=== PATIENT | male | born 1955 | race Caucasian/White ===

== ENCOUNTER → 2020-09-20 12:47 | Outpatient (BNVA) | payer MEDICARE, OTHER, SELFPAY | PROVIDERS: Family Provider Internal Medicine; PCP Internal Medicine; Visit Provider Urology | DX: N40.1 Benign prostatic hyperplasia with lower urinary tract symptoms (principal); Z12.5 Encounter for screening for malignant neoplasm of prostate | CPT/HCPCS: 81003; G0103 ==

== ENCOUNTER → 2021-05-08 13:17 | Outpatient (BNVA) | payer MEDICARE, SELFPAY | PROVIDERS: Family Provider Internal Medicine; PCP Internal Medicine; Visit Provider Nurse Practitioner Family | DX: Z20.822 Contact with and (suspected) exposure to COVID-19 (principal); J06.9 Acute upper respiratory infection, unspecified | CPT/HCPCS: 87635 ==

== ENCOUNTER 2021-05-14 08:50 | Outpatient (CLI) | payer MEDICARE, SELFPAY ==
[2021-05-14 11:08] VITALS: BP 123/77; PULSE 84; RESP 18; TEMP 37.5; O2SAT 96; BMI 29.3
[2021-05-14 11:57] VITALS: BP 140/76; PULSE 72; RESP 18; TEMP 36.6; O2SAT 97
--- NOTE | 2021-05-14 11:57 | PC.NURSE ---
DC, Ambulatory to POV with zero difficulty
[2021-05-14 12:13] VITALS: BP 140/76; PULSE 72; RESP 18; TEMP 36.6; O2SAT 97
== END 2021-05-14 08:51 | disposition home or self-care (01) ==
PROVIDERS: PCP Internal Medicine; Visit Provider Nurse Practitioner Family
DX: U07.1 COVID-19 (principal)
CPT/HCPCS: 96365

== ENCOUNTER 2022-09-04 21:03 | Emergency (ER) | payer MEDICARE, SELFPAY ==
--- NOTE | 2022-09-04 21:10 | CTR_ITS ---
PROCEDURE INFORMATION: Exam: CT Head Without Contrast Exam date and time: 09/04/2022 9:23 PM Age: 67 years old Clinical indication: Syncope and collapse; Patient HX: Witnessed syncope. C/O severe dizziness and nausea. History of vertigo. TECHNIQUE: Imaging protocol: Computed tomography of the head without contrast. Radiation optimization: All CT scans at this facility use at least one of these dose optimization techniques: automated exposure control; mA and/or kV adjustment per patient size (includes targeted exams where dose is matched to clinical indication); or iterative reconstruction. COMPARISON: No relevant prior studies available. RADIATION DOSE METRICS: Total DLP (mGy-cm): 1031.98 FINDINGS: Brain: Normal. No hemorrhage. Unremarkable white matter. No mass effect. Cerebral ventricles: No ventriculomegaly. Paranasal sinuses: Visualized sinuses are unremarkable. No fluid levels. Mastoid air cells: Visualized mastoid air cells are well aerated. Bones/joints: Unremarkable. No acute fracture. Soft tissues: Unremarkable. CT/CT head wo con* [id number] IMPRESSION: No acute intracranial abnormality.
--- NOTE | 2022-09-04 21:10 | XRR_ITS ---
PROCEDURE INFORMATION: Exam: XR Chest Exam date and time: 09/04/2022 10:14 PM Age: 67 years old Clinical indication: Other: Syncope TECHNIQUE: Imaging protocol: Radiologic exam of the chest. Views: 1 view. COMPARISON: MR shoulder LT wo con* [id number] 02/04/2019 8:23 AM FINDINGS: Lungs: Unremarkable. No consolidation. Small right upper lobe calcified granuloma. Pleural spaces: Unremarkable. No pleural effusion. No pneumothorax. Heart/Mediastinum: Unremarkable. No cardiomegaly. Bones/joints: Unremarkable. XR/XR chest 1V portable [id number] IMPRESSION: No acute findings.
--- NOTE | 2022-09-04 21:10 | ECG_ITS ---
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 Measurements Intervals [place] Rate: 85 P: 72 ND: 186 QRS: 77 QRSD: 86 T: 71 QT: 349 QTc: 415 Interpretive Statements SINUS RHYTHM NONSPECIFIC T-WAVE ABNORMALITY No previous ECG available for comparison Electronically Signed On 09-06-2022 12:29:46 FURNACE INSTALLER by Isaias Sheth M.D. [email or web address]
[2022-09-04 21:15] VITALS: BP 131/74; PULSE 83; RESP 18; TEMP 37.1; O2SAT 96; BMI 29.9
--- NOTE | 2022-09-04 21:16 | ED_ITS ---
HPI - Syncope General: Chief Complaint: Syncope Stated Complaint: syncope, nausea, vomiting, dizziness Time Seen by Provider: 09/04/22 21:04 Source: patient and EMS Mode of arrival: EMS Limitations: no limitations History of Present Illness: 67-year-old male states that he was at [facility] he states that he started feeling diaphoretic and states he felt like he is going to pass out and then did have a syncopal event. He states happened roughly an hour ago he states that he vomited once he woke up and he is felt much improved he states he does have some slight vertigo that has been chronic in nature for years denies hitting his head denies any chest pain denies any shortness of breath. Associated symptoms: Deny abdominal pain, fever(s) or nausea Review of Systems Const: Denies: fever(s), chills, body aches or change in appetite Eyes: Denies: blurry vision or eye discomfort ENMT: Denies: throat pain or dental pain Card: Reports: syncope Resp: Denies: dyspnea GI: Denies: abdominal pain, nausea, vomiting or diarrhea : Denies: dysuria Musc: Denies: neck pain or back pain Skin/Breast: Denies: rash Neuro: Reports: dizziness Psych: Denies: depression Fredi/Lymph: Denies: easy bruising All/Imm: Denies: urticaria PFSH ED PFSH: Medical History Bladder pain BPH loc w urin obs/LUTS Chronic prostatitis History of open sigmoidectomy RESECTION OF SIGMOID FOR CHRONIC AND ACUTE DIVERTICULITIS Hypoglycemia Lumbar disc disease with radiculopathy Nocturia Surgical History Hx of arthroscopy of left knee S/P colon resection Family History Father , AT AGE 69 Stroke Mother , AT AGE 75 Diabetes Hypertension Social History Smoking and tobacco status: never smoked Alcohol intake: current Alcohol intake frequency: holidays/special occasions only Adopted: No Caregiver/support person: No Lives independently: No Marital status: Current occupational status: employed History of recent travel: No Physical Exam Const: COMMON NORMALS: no acute distress, patient oriented x3 and healthy appearing HENMT: COMMON NORMALS: normocephalic and atraumatic HEAD & SCALP: normocephalic and atraumatic Eye: COMMON NORMALS: Equal, round and reactive pupils present and EOMs intact bilaterally PUPIL: Yes Equal, round and reactive pupils present Neck/C-Spine: COMMON NORMALS: full ROM and supple Chest: COMMONS NORMALS: normal inspection of the chest and normal palpation of entire chest wall Resp: COMMON NORMALS: normal respiratory effort, No retractions, No use of accessory muscles and clear to auscultation bilaterally AUSCULTATION: clear to auscultation bilaterally Cardio: COMMON NORMALS: regular rate, regular rhythm and No murmurs present (Cardio) RATE: regular rate RHYTHM: regular rhythm GI: COMMON NORMALS: Normal to inspection, nondistended, normoactive bowel sounds present, Soft to palpation, non-tender and no masses PALPATION: Yes Soft to palpation Extremity: COMMON NORMALS: normal to inspection and full ROM Neuro: COMMON NORMALS: patient oriented x3, moves all extremities and no focal motor deficits Psych: COMMON NORMALS: mental status grossly normal, Normal thought process present and cooperative THOUGHT PROCESS: Normal thought process present Skin: COMMON NORMALS: no rashes or lesions noted and no wounds GENERAL SKIN EXAM: no rashes or lesions noted Course Vital Signs: Vital signs: Vital Signs Temperature 98.7 F 09/04/22 21:15 Pulse Rate 92 09/04/22 23:16 Respiratory Rate 17 09/04/22 23:16 Blood Pressure 154/93 09/04/22 23:16 Pulse Oximetry 97 09/04/22 23:16 Oxygen Delivery Me thod 09/04/22 23:16 MDM - Syncope Medical Decision Making Patient presents here with a syncopal event he feels much improved here he did have some vertigo as long history of vertigo CT was normal blood works normal no signs of a stroke or acute coronary syndrome he is stable for discharge she is to follow-up with PCP and return if worsening. Lab Data 09/04/22 21:21 09/04/22 21:21 Radiology Impressions Chest X-Ray 09/04/22 21:10 IMPRESSION: No acute findings. Head CT 09/04/22 21:10 IMPRESSION: No acute intracranial abnormality. Laboratory Results WBC 11.8 10^3/uL (4.0-10.0) H 09/04/22 21: RBC 5.52 10^6/uL (4.1-5.3) H 09/04/22 21:21 Hgb 16.2 g/dL (11.7-16.6) 09/04/22 21:21 Hct 47.3 % (42.0-52.0) 09/04/22 21: MCV 85.7 fl (80-94) 09/04/22 21: MCH 29.3 pg (28.0-34.0) 09/04/22 21: MCHC 34.2 g/dL (30.0-36.0) 09/04/22 21: RDW 13.2 % (12.1-15.1) 09/04/22 21: Plt Count 206 10^3/cmm (130-400) 09/04/22 21: MPV 11.2 fL (7.4-10.4) H 09/04/22 21: Neut % (Auto) 67.7 % 09/04/22 21: Lymph % (Auto) 25.1 % 09/04/22 21: [place] % (Auto) 5.7 % 09/04/22 21: Eos % (Auto) 0.8 % 09/04/22 21: Baso % (Auto) 0.4 % 09/04/22 21: Neut # (Auto) 7.99 10^3/uL (1.8-7.7) H 09/04/22 21: Lymph # (Auto) 3.0 10^3/uL (0.8-4.8) 09/04/22 21:21 [place] # (Auto) 0.7 10^3/uL (0.2-0.9) 09/04/22 21: Eos # (Auto) 0.1 10^3/uL (0.0-0.8) 09/04/22 21:21 Baso # (Auto) 0.1 10^3/uL (0.0-0.1) 09/04/22 21: Nucleated RBC % (auto) 0 % 09/04/22 21: Nucleated RBCs # 0.0 /100WBC 09/04/22 21:21 Sodium 139 mmol/L (136-145) 09/04/22 21:21 Potassium 3.8 mmol/L (3.5-5.1) 09/04/22 21:21 Chloride 100 mmol/L (98-107) 09/04/22 21:21 Carbon Dioxide 26 mmol/L (22-29) 09/04/22 21:21 Anion Gap 16.8 (5-19) 09/04/22 21:21 BUN 14 mg/dL (8-23) 09/04/22 21:21 Creatinine 1.0 mg/dL (0.7-1.2) 09/04/22 21:21 GFR Calculation 74.1 mL/min (90-130) L 09/04/22 21:21 Glucose 127 mg/dL (65-115) H 09/04/22 21:21 Calculated Osmolality 290 mOsm/kg (285-295) 09/04/22 21:21 Calcium 9.5 mg/dL (8.5-10.5) 09/04/22 21:21 Total Bilirubin 0.5 mg/dL (0.15-1.2) 09/04/22 21:21 AST 30 U/L (0-40) 09/04/22 21:21 ALT 41 U/L (0-41) 09/04/22 21:21 Alkaline Phosphatase 77 U/L (40-130) 09/04/22 21:21 Troponin T Baseline 6 ng/L (0-15) 09/04/22 21:21 Troponin T 120 Minute 9.38 ng/L (0-15) 09/04/22 23:05 Total Protein 7.4 g/dL (6.6-8.7) 09/04/22 21:21 Albumin 4.6 g/dL (3.5-5.2) 09/04/22 21:21 Globulin 2.8 g/dL (1.3-4.6) 09/04/22 21:21 Discharge Plan Discharge Patient Disposition: Home Clinical Impression: Syncope, Vomiting Condition: Stable Prescriptions: New ondansetron 4 mg tablet,disintegrating 4 mg PO Q6H PRN (Reason: nausea and vomiting) Qty: 14 0RF No Action Advil PM 200-38 mg tablet PO .prn ibuprofen 800 mg tablet 800 mg PO .prn multivitamin Tablet 1 tab PO DAILY ascorbic acid (vitamin C) 1,000 mg tablet 1 g PO DAILY turmeric 400 mg capsule PO DAILY tadalafil [Cialis] 5 mg tablet 5 mg PO DAILY Qty: 30 2RF alfuzosin [Uroxatral] 10 mg tablet extended release 24 hr 10 mg PO DAILY Qty: 90 3RF Rx Instructions: administer after the same meal each day Discharge Orders: Discharge ED (Routine); Ordered 09/04/22 Ordered By: Afia Rendon Referrals: Noman Hernandez MD [Primary Care Provider] - 1-3 days Discharge Diet: Advance as tolerated Discharge Activity: Resume usual activity Patient Instructions: Syncope (ED) Coding Level of Care Code ED Boarding House Manager for Gurpreet Fwpatrizia Exam Comprehensive
[2022-09-04 21:25] LABS: Basophils # 0.1 10^3/uL (0.0-0.1); Basophils % 0.4 %; Eosinophils # 0.1 10^3/uL (0.0-0.8); Eosinophils % 0.8 %; Hematocrit 47.3 % (42.0-52.0); Hemoglobin 16.2 g/dL (11.7-16.6); Lymphocytes % 25.1 %; Mean Corpuscular HGB Conc 34.2 g/dL (30.0-36.0); Mean Corpuscular Hemoglobin 29.3 pg (28.0-34.0); Mean Corpuscular Volume 85.7 fl (80-94); Mean Platelet Volume 11.2 fL (7.4-10.4); Monocytes # 0.7 10^3/uL (0.2-0.9); Monocytes % 5.7 %; Neutrophils # 7.99 10^3/uL (1.8-7.7); Neutrophils % 67.7 %; Nucleated Red Blood Cells % 0 %; Platelet Count 206 10^3/cmm (130-400); Red Blood Count 5.52 10^6/uL (4.1-5.3); Red Cell Distribution Width 13.2 % (12.1-15.1); White Blood Count 11.8 10^3/uL (4.0-10.0)
[2022-09-04 21:47] LABS: Troponin(5th) Baseline 6 ng/L (0-15)
[2022-09-04 21:50] LABS: Alanine Aminotransferase 41 U/L (0-41); Albumin Level 4.6 g/dL (3.5-5.2); Alkaline Phosphatase 77 U/L (40-130); Aspartate Amino Transferase 30 U/L (0-40); Blood Urea Nitrogen 14 mg/dL (8-23); Calcium 9.5 mg/dL (8.5-10.5); Carbon Dioxide 26 mmol/L (22-29); Chloride 100 mmol/L (98-107); Globulin 2.8 g/dL (1.3-4.6); Glomerular Filtration Rate 74.1 mL/min (90-130); Glucose 127 mg/dL (65-115); Osmolality Calculated 290 mOsm/kg (285-295); Sodium 139 mmol/L (136-145); Total Bilirubin 0.5 mg/dL (0.15-1.2); Total Protein 7.4 g/dL (6.6-8.7)
[2022-09-04] MEDS: sodium chloride 0.9% 1,000 ML 999 ML IV (21:56)
[2022-09-04] MEDS: ondansetron 2 mg/ML SDV 2 mL 4 MG IVP (21:56)
[2022-09-04] MEDS: meclizine 25 mg tablet 50 MG PO (21:56)
[2022-09-04 22:03] LABS: Anion Gap 16.8 (5-19); Potassium 3.8 mmol/L (3.5-5.1)
[2022-09-04 23:16] VITALS: BP 154/93; PULSE 92; RESP 17; O2SAT 97
[2022-09-04 23:30] LABS: Troponin 5 2HR 9.38 ng/L (0-15)
[2022-09-04 23:38] LABS: Troponin 5 2HR Delta 3.38 ABS# (0-10)
[2022-09-04 23:48] VITALS: BP 171/99; PULSE 71; RESP 17; O2SAT 98
== END 2022-09-04 23:50 | disposition home or self-care (01) ==
PROVIDERS: Emergency Provider Emergency Medicine; PCP Internal Medicine
DX: R55 Syncope and collapse (principal); R11.11 Vomiting without nausea
CPT/HCPCS: 70450; 71045; 80053; 84484; 85025; 93005; 96361; 96374; 99285; J2405; J7030; J8597

== ENCOUNTER 2022-09-18 11:20 | Outpatient (CLI) | payer MEDICARE, SELFPAY ==
[2022-09-18 12:12] LABS: PSA Screen - Urology 1.64 ng/mL (0-4)
== END 2022-09-18 11:21 | disposition home or self-care (01) ==
LOC: LAB 11:21
PROVIDERS: PCP Family Medicine; Visit Provider Urology
DX: Z12.5 Encounter for screening for malignant neoplasm of prostate (principal)
CPT/HCPCS: 36415; 51741; 51798; 81003; 99213; G0103

== ENCOUNTER → 2023-06-19 13:41 | Outpatient (BNVA) | payer MEDICARE, SELFPAY | PROVIDERS: PCP Internal Medicine; Visit Provider Nurse Practitioner Family | DX: L57.0 Actinic keratosis (principal); L81.4 Other melanin hyperpigmentation; D36.11 Benign neoplasm of peripheral nerves and autonomic nervous system of face, head, and neck; D36.14 Benign neoplasm of peripheral nerves and autonomic nervous system of thorax; L57.8 Other skin changes due to chronic exposure to nonionizing radiation; D18.01 Hemangioma of skin and subcutaneous tissue | CPT/HCPCS: 17004; 99213 ==

== ENCOUNTER 2024-08-04 10:39 | Outpatient (CLI) | payer MEDICARE, SELFPAY ==
--- NOTE | 2024-08-04 10:44 | MR_ITS ---
WS: [id number] MRI LUMBAR SPINE NONCONTRAST HISTORY: LOW BACK PAIN COMPARISON: 03/13/2016 TECHNIQUE: Sagittal and axial multisequence imaging is submitted. Very mild straightening of the normal lumbar lordosis. L5 retrolisthesis by 3 mm. No fractures or mar row edema. Disc spaces and vertebral body heights are well-preserved. Conus terminates normally at L1-2 disc level. L1-L2: Normal. L2-L3: Normal. L3-L4: Small amount of fluid in the facet joints with ligamentum flavum hypertrophy. L4-L5: Diffuse mild annular disc bulging with a moderate LEFT foraminal disc osteophyte complex. Ther e is very slight disc encroachment upon the traversing L5 nerve roots. Slight contact on the exiting LEFT L4 nerve root. L5-S1: Mild annular disc bulging with a shallow RIGHT foraminal disc protrusion. Very minimal disc co ntact on the RIGHT S1 nerve root. Mild facet arthritis. Minimal RIGHT foraminal narrowing. MR/MR lumbar spine wo con* [id number] IMPRESSION: 1. No high-grade central or foraminal stenosis. 2. L4-5: Moderate LEFT foraminal disc osteophyte complex. There is mild disc e ncroachment upon the LEFT L4 and L5 nerve roots. No high-grade stenosis. 3. L5-S1: Shallow RIGHT foraminal disc protrusion. Minimal narrowing of the RI GHT foramen. Minimal disc contact on the RIGHT S1 nerve root.
== END 2024-08-04 10:40 | disposition home or self-care (01) ==
LOC: RAD 10:39
PROVIDERS: PCP Internal Medicine; Visit Provider Internal Medicine
DX: M99.63 Osseous and subluxation stenosis of intervertebral foramina of lumbar region (principal)
CPT/HCPCS: 72148

== ENCOUNTER 2025-02-24 09:25 | Outpatient (CLI) | payer MEDICARE, SELFPAY ==
--- NOTE | 2025-02-24 09:30 | MR_ITS ---
WS: [id number] MRI HEAD WITH CONTRAST WITH ATTENTION TO THE INTERNAL AUDITORY CANALS TECHNIQUE: Sagittal T1, T2 axial, T2 axial flair, axial susceptibility weighted imaging, axial diffusion weighted images, and coronal T2 images were obtained. Pre and post T1 axial and post T1 coronal images. ADC and FSPGR images. Post gadolinium images with attention to the internal auditory canals. Axial fiesta imaging. CLINICAL INFORMATION: DIZZINESS COMPARISON: None. FINDINGS: No evidence of restricted diffusion to suggest acute ischemia. Ventricular system and basilar cisterns are patent. Mild small vessel changes. Mild parenchymal volume loss. Normal posterior fossa. Normal vascular flow voids at the skull base. No extra-axial fluid collections. No evidence of mass or mass effect. Paranasal sinuses are well aerated. Mild mucosal thickening in the mastoid air cells. Proximal 7th and 8th cranial nerves are normal in appearance. No evidence of enhancing IAC or CP angle mass. Normal trigeminal nerve root entry zones. No abnormal gadolinium enhancement. Normal dural venous sinuses. MR/MR iac's wo/w con* [id number] IMPRESSION: 1. Proximal 7th and 8th cranial nerves are normal in appearance. No evidence o f enhancing IAC or CP angle mass. 2. Normal trigeminal nerve root entry zones. 3. Mild mucosal thickening in the mastoid air cells. Paranasal sinuses are wel l aerated. 4. Mild small vessel changes with mild parenchymal volume loss.
[2025-02-24] MEDS: gadobenate dimeglumine 20 mL vial IV (10:28)
== END 2025-02-24 09:26 | disposition home or self-care (01) ==
LOC: RAD 09:28
PROVIDERS: PCP Internal Medicine; Visit Provider Specialist
DX: R42 Dizziness and giddiness (principal); H74.8X9 Other specified disorders of middle ear and mastoid, unspecified ear; R93.0 Abnormal findings on diagnostic imaging of skull and head, not elsewhere classified
CPT/HCPCS: 70553; A9577